=== PATIENT | male | born 1970 | race Caucasian/White ===

== ENCOUNTER 2017-10-06 17:08 | Emergency (ER) | payer SELFPAY | END 2017-10-06 20:35 | disposition home or self-care (01) | LOC: EDBD 17:08 → D.ER 17:08 | DX: K04.7 Periapical abscess without sinus (principal) ==

== ENCOUNTER 2018-03-01 16:44 | Emergency (ER) | payer SELFPAY ==
[2018-03-31 09:36] VITALS: BMI 29.4
== END 2018-03-01 17:33 | disposition home or self-care (01) ==
LOC: D.ER 16:44
DX: K40.90 Unilateral inguinal hernia, without obstruction or gangrene, not specified as recurrent (principal)

== ENCOUNTER 2018-03-31 08:40 | Day surgery (SDC) | payer OTHER ==
[~2018-03-31] VITALS: Ht 162.6 cm; Wt 77.6 kg
[2018-03-31 09:36] VITALS: BP 122/74; Ht 162.6 cm; Wt 77.6 kg
[2018-03-31] MEDS ORDERED: HYDROCODON-ACE1 EAC7 PO (13:47)
[2018-03-31] MEDS ORDERED: FLOMAX0.4 MG PO (13:48)
[2018-03-31] MEDS ORDERED: FUROSEMIDE20 MG PO (13:48)
== END 2018-03-31 15:30 | disposition home or self-care (01) ==
LOC: D.OPS 08:40 → D.PAN 11:15 → D.OPS 11:30 → D.PAN 11:30 → D.OPS 12:15
DX: K40.90 Unilateral inguinal hernia, without obstruction or gangrene, not specified as recurrent (principal); F17.200 Nicotine dependence, unspecified, uncomplicated; Z01.812 Encounter for preprocedural laboratory examination

== ENCOUNTER 2018-07-20 22:09 | Emergency (ER) | payer SELFPAY ==
[~2018-07-20] VITALS: Ht 162.6 cm; Wt 70.9 kg
[~2018-07-20 22:09] MED LIST: FLOMAX0.4 MG PO; FUROSEMIDE20 MG PO; HYDROCODON-ACE1 EAC7 PO
[2018-07-20 22:14] VITALS: Ht 162.6 cm; Wt 70.9 kg
[2018-07-20] MEDS ORDERED: MINOCIN100 MG PO (22:38)
[2018-07-20] MEDS ORDERED: VOLTAREN75 MG PO (22:38)
[2018-07-20 23:13] VITALS: BP 118/72
== END 2018-07-20 23:13 | disposition home or self-care (01) ==
LOC: D.ER 22:09
DX: H05.011 Cellulitis of right orbit (principal)